=== PATIENT | female | born 1985 | race Caucasian/White ===

== ENCOUNTER 2018-04-04 07:46 | Emergency (ER) | payer OTHER, SELFPAY ==
[2018-04-04 07:53] VITALS: BP 119/64; PULSE 101; RESP 16; TEMP 36.4; O2SAT 99; BMI 19.0
[2018-04-04 07:54] VITALS: BP 119/64; PULSE 101; RESP 16; TEMP 36.4; O2SAT 99
[2018-04-04 08:26] LABS: Add Manual Diff / Slide Review NO; Basophils Absolute Auto 0 /uL (0-100); Basophils Percent Auto 0.3 % (0-2); Eosinophils Absolute Auto 100 /uL (0-450); Eosinophils Percent Auto 1.2 % (2-4); Hematocrit 42.7 % (36-46); Hemoglobin 14.3 g/dL (12.0-16.0); Lymphocytes Absolute Auto 1800 /uL (1100-4500); Lymphocytes Percent Auto 21.3 % (25-40); Mean Corpuscular HGB Conc 33.5 % (30-36); Mean Corpuscular Hemoglobin 29.9 PG (26-34); Mean Corpuscular Volume 89.3 fL (80-100); Monocytes Absolute Auto 700 /uL (0-900); Monocytes Percent Auto 8.2 % (3-14); Neutrophils Absolute Auto 5900 /uL (1500-7000); Platelet Count 277 X10^3/uL (150-400); Red Blood Cell Count 4.78 X10^6/uL (4.0-5.2); Red Cell Distribution Width 12.5 % (11.6-14.8); White Blood Cell Count 8.5 X10^3/uL (4.5-11.0)
[2018-04-04] MEDS: SODIUM CHLORIDE 0.9% 1,000 ML 1000 ML IV (08:26)
[2018-04-04] MEDS: ONDANSETRON 4 MG/2 ML INJ IV (08:26)
--- NOTE | 2018-04-04 08:30 | ED.NAVMDI ---
HPI - Nausea/Vomiting/Diarrhea General Chief complaint: Nausea/Vomiting/Diarrhea Stated complaint: states upper abd pain, diarrhea x10 days Time Seen by Provider: 04/04/18 08:16 Source: patient Mode of arrival: ambulatory Limitations: no limitations History of Present Illness HPI Narrative: This is a 32-year-old female that comes to the emergency department with complaint of epigastric pain. Patient states it started about 11 days ago. She states that she thought it was because she was eating some food she does not normally eat. But it did not really seem to resolve. She has been having diarrhea intermittently since then. She states most time she eats she will later have loose watery stool. Sometimes up to 5 times a day. Patient has had some slight nausea occasionally, no vomiting. Food seems to exacerbate her symptoms as well as her abdominal pain. Patient denies any radiation to the back. She states she does have some chronic back discomfort but this is her norm. She has not had any black or bloody stool. She has not had any dysuria, urgency or frequency. She had somewhat similar pain when she was but otherwise has not had similar symptoms in the past. She denies any fevers or chills. She states otherwise healthy. No prior abdominal surgeries. Related Data Previous Rx's Medication Instructions Recorded esomeprazole magnesium [Nexium] 40 mg PO DAILY #30 cap 04/04/18 Allergies Allergy/AdvReac Type Severity Reaction Status Date / Time Sulfa (Sulfonamide Allergy Severe Anaphylaxis Verified 04/04/18 08:25 Antibiotics) Review of Systems Review of Systems ROS Unobtainable: All systems reviewed & are unremarkable except as noted in HPI and below Constitutional Denies chills and Denies fever(s) Gastrointestinal Gastrointestinal: Reports abdominal pain (Epigastric), Denies melena, Denies hematochezia, Denies change in bowel habits, Reports change in stool character, Denies constipation, Reports diarrhea, Reports nausea and Denies vomiting Genitourinary Denies hematuria, Denies dysuria, Denies flank pain, Denies urinary incontinence, Denies urinary hesitancy and Denies urinary urgency Musculoskeletal Reports back pain (Mild chronic back pain) PFSH Social History Smoking Status: Never smoker Social History Smoking Status: Never smoker Exam Narrative Exam Narrative: GENERAL: Alert and oriented x three, thin, well-appearing healthy female in no acute distress. HEENT: Head normocephalic, atraumatic, EOMI, pupils reactive, face symmetric, moist mucous membranes NECK: Supple, full range of motion CARDIOVASCULAR: Regular rate and rhythm without murmurs, rubs or gallops. RESPIRATORY: Breath sounds equal bilaterally, no wheezes rales or rhonchi. ABDOMEN: Soft, very mild epigastric tenderness. Normoactive bowel sounds all 4 quadrants. No guarding or rebound, rigidity, no mass : No CVA tenderness EXTREMITIES: Normal range of motion, no clubbing or edema. Neurovascularly intact NEUROLOGICAL: Cranial nerves II through XII grossly intact. Moving all extremities SKIN: Warm, dry, no petechiae, no rashes or lesions. Initial Vital Signs Initial Vital Signs: Vital Signs Temperature 97.6 F 04/04/18 07:53 Pulse Rate 101 H 04/04/18 07:53 Respiratory Rate 16 04/04/18 07:53 Blood Pressure 119/64 04/04/18 07:53 Pulse Oximetry 99 04/04/18 07:53 Course Orders Ordered: ED Orders 04/04/18 08:10 Complete Blood Count AUTO DIFF Stat Comprehensive Metabolic Panel Stat Lipase Stat Partial Thromboplastin Time Stat Prothrombin Time INR Stat 04/04/18 08:29 US abdomen complete Stat 04/04/18 08:30 Urine Culture Stat Urine Microscopic Stat Discontinued Medications Sodium Chloride (Normal Saline 0.9%) 1,000 mls @ 1,000 mls/hr IV BOLUS ONE Stop: 04/04/18 08:56 Last Infusion: 04/04/18 09:20 Dose: 0 mls/hr Admin: 04/04/18 08:26 Dose: 1,000 mls/hr Ondansetron HCl (Zofran) 4 mg IV NOW ONE Stop: 04/04/18 07:58 Last Admin: 04/04/18 08:26 Dose: 4 mg Pantoprazole Sodium (Protonix) 40 mg IV NOW ONE Stop: 04/04/18 08:30 Last Admin: 04/04/18 08:36 Dose: 40 mg Vital Signs - 8 hr 04/04/18 07:53 04/04/18 07:54 04/04/18 09:47 Temperature 97.6 F 97.6 F Pulse Rate 101 H 101 H 69 Respiratory Rate 16 16 20 Blood Pressure 119/64 99/51 L Blood Pressure [Left Arm] 119/64 Pulse Oximetry 99 99 98 MDM - Nausea/Vomiting/Diarrhea Lab Data Attestation: I reviewed the patient's lab results. Result diagrams: 04/04/18 08:10 04/04/18 08:10 Lab Results 04/04/18 04/04/18 04/04/18 Range/Units 08:10 08:10 08:10 WBC 8.5 (4.5-11.0) X10^3/uL RBC 4.78 (4.0-5.2) X10^6/uL Hgb 14.3 (12.0-16.0) g/dL Hct 42.7 (36-46) % MCV 89.3 (80-100) fL MCH 29.9 (26-34) PG MCHC 33.5 (30-36) % RDW 12.5 (11.6-14.8) % Plt Count 277 (150-400) X10^3/uL Neut % (Auto) 69.0 (50-75) % Lymph % (Auto) 21.3 L (25-40) % [place] % (Auto) 8.2 (3-14) % Eos % (Auto) 1.2 L (2-4) % Baso % (Auto) 0.3 (0-2) % Neut # (Auto) 5900 (0511-6148) /uL Lymph # (Auto) 1800 (2321-8498) /uL [place] # (Auto) 700 (0-900) /uL Eos # (Auto) 100 (0-450) /uL Baso # (Auto) 0 (0-100) /uL PT 11.3 (10.1-12.7) SECONDS INR 1.0 (0.9-1.3) APTT 30 (26.4-36.2) SECONDS Sodium 139 (137-145) mmol/L Potassium 3.4 (3.4-5.1) mmol/L Chloride 105 (98-107) mmol/L Carbon Dioxide 23 (22-32) mmol/L BUN 12 (7-17) mg/dL Creatinine 0.60 (0.52-1.04) mg/dL Estimated GFR > 60.0 (>60) mL/min BUN/Creatinine Ratio 20.0 (6-22) Glucose 90 (70-100) mg/dL Calcium 9.0 (8.4-10.2) mg/dL Total Bilirubin 0.4 (0.2-1.3) mg/dL AST 29 (14-36) IU/L ALT 34 (9-52) IU/L Alkaline Phosphatase 40 (38-126) U/L Total Protein 7.3 (6.3-8.2) g/dL Albumin 4.4 (3.5-5.0) g/dL Globulin 2.9 (1.7-4.1) g/dL Albumin/Globulin Ratio 1.5 (1.0-2.8) Lipase 72 (23-300) U/L Urine RBC (0-5/HPF) Urine WBC (0-5/HPF) Ur Squamous Epith Cells Urine Bacteria (None) Urine Mucus (Negative) Ur Culture Indicated? 04/04/18 Range/Units 08:30 WBC (4.5-11.0) X10^3/uL RBC (4.0-5.2) X10^6/uL Hgb (12.0-16.0) g/dL Hct (36-46) % MCV (80-100) fL MCH (26-34) PG MCHC (30-36) % RDW (11.6-14.8) % Plt Count (150-400) X10^3/uL Neut % (Auto) (50-75) % Lymph % (Auto) (25-40) % [place] % (Auto) (3-14) % Eos % (Auto) (2-4) % Baso % (Auto) (0-2) % Neut # (Auto) (6279-0388) /uL Lymph # (Auto) (6027-1955) /uL [place] # (Auto) (0-900) /uL Eos # (Auto) (0-450) /uL Baso # (Auto) (0-100) /uL PT (10.1-12.7) SECONDS INR (0.9-1.3) APTT (26.4-36.2) SECONDS Sodium (137-145) mmol/L Potassium (3.4-5.1) mmol/L Chloride (98-107) mmol/L Carbon Dioxide (22-32) mmol/L BUN (7-17) mg/dL Creatinine (0.52-1.04) mg/dL Estimated GFR (>60) mL/min BUN/Creatinine Ratio (6-22) Glucose (70-100) mg/dL Calcium (8.4-10.2) mg/dL Total Bilirubin (0.2-1.3) mg/dL AST (14-36) IU/L ALT (9-52) IU/L Alkaline Phosphatase (38-126) U/L Total Protein (6.3-8.2) g/dL Albumin (3.5-5.0) g/dL Globulin (1.7-4.1) g/dL Albumin/Globulin Ratio (1.0-2.8) Lipase (23-300) U/L Urine RBC None seen (0-5/HPF) Urine WBC 1-5/hpf (0-5/HPF) Ur Squamous Epith Cells 1-5 /hpf Urine Bacteria Few (2-10) H (None) Urine Mucus 1+ H (Negative) Ur Culture Indicated? Specimen cultured Point of Care Testing Test Results Negative Urine Dip Bedside Urine Glucose Negative Bedside Urine Bilirubin + 1 Bedside Urine Ketone +/- 5 Urine Specific [place] 1.015 Bedside Urine Occult Blood +/- Bedside Urine pH 6.0 Bedside Urine Protein - Negative Bedside Urine Urobilinogen - Negative Bedside Urine Nitrite - Negative Bedside Urine Leukocytes ++ 125 Esterase Imaging Data US - abdomen: Radiologist's impression: Chart Viewer Diagnostics DATE TYPE STATUS AUTHOR Hx 04/04/18 08:29 Cristin Persaud Danielle J 32, F0 1985 DEP ER, ED - Main ED: R10 162.56cm 50.349kg BMI: 19.1kg/m? Nausea/Vomiting/Diarrhea Search Chart Anaphylaxis ONSET Today 09:47 Anjana Johnson 32 F [address] [address] Ultrasound Report Signed Patient: Anjana Johnson JMR#: [id number] : 1985Acct:[id number] Age/Sex: 32 / FDate of Service: 04/04/18 Loc: ED Accession Number: [id number] Procedure: US abdomen complete Ordering Provider: Lety Felix D.O. PROCEDURE: US ABDOMEN COMPLETE INDICATIONS: EPIGASTRIC PAIN TECHNIQUE: Real-time scanning was performed of the abdominal and retroperitoneal organs, with image documentation. COMPARISON: None. FINDINGS: Liver: Liver is normal in size and homogeneous in echotexture. Gallbladder: Normal without stones or sludge. Normal wall thickness at 1.4 mm. No sonographic Nelson's sign or pericholecystic fluid. Biliary ducts: Intrahepatic bile ducts are non-dilated. Extrahepatic bile duct caliber measures 5 mm. Normal is 6-7 mm or less in diameter, or 10 mm or less post-cholecystectomy. Pancreas: Visualized portions of the pancreas are sonographically normal. Spleen: Spleen is normal in size and homogeneous in echotexture. Kidneys: Kidneys are normal in size and echotexture. Right kidney measures 11.7 cm long; left kidney measures 11.7 cm long. No hydronephrosis or nephrolithiasis. No solid masses. Aorta: Visualized aorta is normal in caliber at less than 3 cm. Iliacs: Proximal common iliac arteries are normal in caliber at less than 2.5 cm. IVC: Intrahepatic inferior vena cava is patent. Miscellaneous: No free abdominal fluid. IMPRESSION: Normal abdominal ultrasound. Dictated by: Cristin Persaud M.D. on 04/04/2018 at 11:42 Approved by: Cristin Persaud M.D. on 04/04/2018 at 11:44 MDM Narrative Medical decision making narrative: I suspect patient may have ulcer. She urine has leukocyte esterase but also 1-5 epithelials, sent for urine culture after conversation with patient. Will call if positive to start antibiotics. Unlikely to be cause of her epigastric pain. Patient's lab work does not show any major changes. Ultrasound does show any major changes. Discussed with patient she is comfortable starting dose medication to see if this improves her symptoms. We discussed to probably take a week before she really noticed much change. Also discussed to make sure she is keeping hydrated. Patient and I did discuss signs and symptoms to watch for reasons to return. Do want her to follow up with primary care. Discharge Plan Departure Patient Disposition: Home Clinical Impression: Epigastric abdominal pain Discharge Date/Time: 04/04/18 09:51 Interventions: ED Discharge Assessment Last Done: 04/04/18 09:47 Instructions: DI for Epigastric Pain Activity Restrictions/Additional Instructions: Follow up with primary care in the next 5-7 days for recheck. Call for an appointment. Your urine was sent for culture, if positive for infection you should expect a phone call to start you on antibiotics. Take nexium once daily until you see your physician. Return to ER for fevers greater than 100.4F, rapidly worsening pain, persistent vomiting, black or bloody stools, new chest pain, shortness of breath or other new or concerning symptoms. Prescriptions: New esomeprazole magnesium [Nexium] 40 mg capsule,delayed release(DR/EC) 40 mg PO DAILY Qty: 30 RF: 0
[2018-04-04 08:32] LABS: Prothrombin Time 11.3 SECONDS (10.1-12.7)
--- NOTE | 2018-04-04 08:33 | ED_ITS ---
HPI - Nausea/Vomiting/Diarrhea General Chief complaint: Nausea/Vomiting/Diarrhea Stated complaint: states upper abd pain, diarrhea x10 days Time Seen by Provider: 04/04/18 08:16 Source: patient Mode of arrival: ambulatory Limitations: no limitations History of Present Illness HPI Narrative: This is a 32-year-old female that comes to the emergency department with complaint of epigastric pain. Patient states it started about 11 days ago. She states that she thought it was because she was eating some food she does not normally eat. But it did not really seem to resolve. She has been having diarrhea intermittently since then. She states most time she eats she will later have loose watery stool. Sometimes up to 5 times a day. Patient has had some slight nausea occasionally, no vomiting. Food seems to exacerbate her symptoms as well as her abdominal pain. Patient denies any radiation to the back. She states she does have some chronic back discomfort but this is her norm. She has not had any black or bloody stool. She has not had any dysuria, urgency or frequency. She had somewhat similar pain when she was but otherwise has not had similar symptoms in the past. She denies any fevers or chills. She states otherwise healthy. No prior abdominal surgeries. Related Data Previous Rx's Medication Instructions Recorded esomeprazole magnesium [Nexium] 40 mg PO DAILY #30 cap 04/04/18 Allergies Allergy/AdvReac Type Severity Reaction Status Date / Time Sulfa (Sulfonamide Allergy Severe Anaphylaxis Verified 04/04/18 08:25 Antibiotics) Review of Systems Review of Systems ROS Unobtainable: All systems reviewed & are unremarkable except as noted in HPI and below Constitutional Denies chills and Denies fever(s) Gastrointestinal Gastrointestinal: Reports abdominal pain (Epigastric), Denies melena, Denies hematochezia, Denies change in bowel habits, Reports change in stool character, Denies constipation, Reports diarrhea, Reports nausea and Denies vomiting Genitourinary Denies hematuria, Denies dysuria, Denies flank pain, Denies urinary incontinence, Denies urinary hesitancy and Denies urinary urgency Musculoskeletal Reports back pain (Mild chronic back pain) PFSH Social History Smoking Status: Never smoker Social History Smoking Status: Never smoker Exam Narrative Exam Narrative: GENERAL: Alert and oriented x three, thin, well-appearing healthy female in no acute distress. HEENT: Head normocephalic, atraumatic, EOMI, pupils reactive, face symmetric, moist mucous membranes NECK: Supple, full range of motion CARDIOVASCULAR: Regular rate and rhythm without murmurs, rubs or gallops. RESPIRATORY: Breath sounds equal bilaterally, no wheezes rales or rhonchi. ABDOMEN: Soft, very mild epigastric tenderness. Normoactive bowel sounds all 4 quadrants. No guarding or rebound, rigidity, no mass : No CVA tenderness EXTREMITIES: Normal range of motion, no clubbing or edema. Neurovascularly intact NEUROLOGICAL: Cranial nerves II through XII grossly intact. Moving all extremities SKIN: Warm, dry, no petechiae, no rashes or lesions. Initial Vital Signs Initial Vital Signs: Vital Signs Temperature 97.6 F 04/04/18 07:53 Pulse Rate 101 H 04/04/18 07:53 Respiratory Rate 16 04/04/18 07:53 Blood Pressure 119/64 04/04/18 07:53 Pulse Oximetry 99 04/04/18 07:53 Course Orders Ordered: ED Orders 04/04/18 08:10 Complete Blood Count AUTO DIFF Stat Comprehensive Metabolic Panel Stat Lipase Stat Partial Thromboplastin Time Stat Prothrombin Time INR Stat 04/04/18 08:29 US abdomen complete Stat 04/04/18 08:30 Urine Culture Stat Urine Microscopic Stat Discontinued Medications Sodium Chloride (Normal Saline 0.9%) 1,000 mls @ 1,000 mls/hr IV BOLUS ONE Stop: 04/04/18 08:56 Last Infusion: 04/04/18 09:20 Dose: 0 mls/hr Admin: 04/04/18 08:26 Dose: 1,000 mls/hr Ondansetron HCl (Zofran) 4 mg IV NOW ONE Stop: 04/04/18 07:58 Last Admin: 04/04/18 08:26 Dose: 4 mg Pantoprazole Sodium (Protonix) 40 mg IV NOW ONE Stop: 04/04/18 08:30 Last Admin: 04/04/18 08:36 Dose: 40 mg Vital Signs - 8 hr 04/04/18 07:53 04/04/18 07:54 04/04/18 09:47 Temperature 97.6 F 97.6 F Pulse Rate 101 H 101 H 69 Respiratory Rate 16 16 20 Blood Pressure 119/64 99/51 L Blood Pressure [Left Arm] 119/64 Pulse Oximetry 99 99 98 MDM - Nausea/Vomiting/Diarrhea Lab Data Attestation: I reviewed the patient's lab results. Result diagrams: 04/04/18 08:10 04/04/18 08:10 Lab Results 04/04/18 04/04/18 04/04/18 Range/Units 08:10 08:10 08:10 WBC 8.5 (4.5-11.0) X10^3/uL RBC 4.78 (4.0-5.2) X10^6/uL Hgb 14.3 (12.0-16.0) g/dL Hct 42.7 (36-46) % MCV 89.3 (80-100) fL MCH 29.9 (26-34) PG MCHC 33.5 (30-36) % RDW 12.5 (11.6-14.8) % Plt Count 277 (150-400) X10^3/uL Neut % (Auto) 69.0 (50-75) % Lymph % (Auto) 21.3 L (25-40) % [place] % (Auto) 8.2 (3-14) % Eos % (Auto) 1.2 L (2-4) % Baso % (Auto) 0.3 (0-2) % Neut # (Auto) 5900 (9640-0924) /uL Lymph # (Auto) 1800 (8944-2110) /uL [place] # (Auto) 700 (0-900) /uL Eos # (Auto) 100 (0-450) /uL Baso # (Auto) 0 (0-100) /uL PT 11.3 (10.1-12.7) SECONDS INR 1.0 (0.9-1.3) APTT 30 (26.4-36.2) SECONDS Sodium 139 (137-145) mmol/L Potassium 3.4 (3.4-5.1) mmol/L Chloride 105 (98-107) mmol/L Carbon Dioxide 23 (22-32) mmol/L BUN 12 (7-17) mg/dL Creatinine 0.60 (0.52-1.04) mg/dL Estimated GFR > 60.0 (>60) mL/min BUN/Creatinine Ratio 20.0 (6-22) Glucose 90 (70-100) mg/dL Calcium 9.0 (8.4-10.2) mg/dL Total Bilirubin 0.4 (0.2-1.3) mg/dL AST 29 (14-36) IU/L ALT 34 (9-52) IU/L Alkaline Phosphatase 40 (38-126) U/L Total Protein 7.3 (6.3-8.2) g/dL Albumin 4.4 (3.5-5.0) g/dL Globulin 2.9 (1.7-4.1) g/dL Albumin/Globulin Ratio 1.5 (1.0-2.8) Lipase 72 (23-300) U/L Urine RBC (0-5/HPF) Urine WBC (0-5/HPF) Ur Squamous Epith Cells Urine Bacteria (None) Urine Mucus (Negative) Ur Culture Indicated? 04/04/18 Range/Units 08:30 WBC (4.5-11.0) X10^3/uL RBC (4.0-5.2) X10^6/uL Hgb (12.0-16.0) g/dL Hct (36-46) % MCV (80-100) fL MCH (26-34) PG MCHC (30-36) % RDW (11.6-14.8) % Plt Count (150-400) X10^3/uL Neut % (Auto) (50-75) % Lymph % (Auto) (25-40) % [place] % (Auto) (3-14) % Eos % (Auto) (2-4) % Baso % (Auto) (0-2) % Neut # (Auto) (3604-5974) /uL Lymph # (Auto) (5941-3964) /uL [place] # (Auto) (0-900) /uL Eos # (Auto) (0-450) /uL Baso # (Auto) (0-100) /uL PT (10.1-12.7) SECONDS INR (0.9-1.3) APTT (26.4-36.2) SECONDS Sodium (137-145) mmol/L Potassium (3.4-5.1) mmol/L Chloride (98-107) mmol/L Carbon Dioxide (22-32) mmol/L BUN (7-17) mg/dL Creatinine (0.52-1.04) mg/dL Estimated GFR (>60) mL/min BUN/Creatinine Ratio (6-22) Glucose (70-100) mg/dL Calcium (8.4-10.2) mg/dL Total Bilirubin (0.2-1.3) mg/dL AST (14-36) IU/L ALT (9-52) IU/L Alkaline Phosphatase (38-126) U/L Total Protein (6.3-8.2) g/dL Albumin (3.5-5.0) g/dL Globulin (1.7-4.1) g/dL Albumin/Globulin Ratio (1.0-2.8) Lipase (23-300) U/L Urine RBC None seen (0-5/HPF) Urine WBC 1-5/hpf (0-5/HPF) Ur Squamous Epith Cells 1-5 /hpf Urine Bacteria Few (2-10) H (None) Urine Mucus 1+ H (Negative) Ur Culture Indicated? Specimen cultured Point of Care Testing Test Results Negative Urine Dip Bedside Urine Glucose Negative Bedside Urine Bilirubin + 1 Bedside Urine Ketone +/- 5 Urine Specific [place] 1.015 Bedside Urine Occult Blood +/- Bedside Urine pH 6.0 Bedside Urine Protein - Negative Bedside Urine Urobilinogen - Negative Bedside Urine Nitrite - Negative Bedside Urine Leukocytes ++ 125 Esterase Imaging Data US - abdomen: Radiologist's impression: Chart Viewer Diagnostics DATE TYPE STATUS AUTHOR Hx 04/04/18 08:29 Cristin Persaud Danielle J 32, F0 1985 DEP ER, ED - Main ED: R10 162.56cm 50.349kg BMI: 19.1kg/m? Nausea/Vomiting/Diarrhea Search Chart Anaphylaxis ONSET Today 09:47 Anjana Johnson 32 F [address] [address] Ultrasound Report Signed Patient: Anjana Johnson JMR#: [id number] : 1985Acct:[id number] Age/Sex: 32 / FDate of Service: 04/04/18 Loc: ED Accession Number: [id number] Procedure: US abdomen complete Ordering Provider: Lety Felix D.O. PROCEDURE: US ABDOMEN COMPLETE INDICATIONS: EPIGASTRIC PAIN TECHNIQUE: Real-time scanning was performed of the abdominal and retroperitoneal organs, with image documentation. COMPARISON: None. FINDINGS: Liver: Liver is normal in size and homogeneous in echotexture. Gallbladder: Normal without stones or sludge. Normal wall thickness at 1.4 mm. No sonographic Nelson's sign or pericholecystic fluid. Biliary ducts: Intrahepatic bile ducts are non-dilated. Extrahepatic bile duct caliber measures 5 mm. Normal is 6-7 mm or less in diameter, or 10 mm or less post-cholecystectomy. Pancreas: Visualized portions of the pancreas are sonographically normal. Spleen: Spleen is normal in size and homogeneous in echotexture. Kidneys: Kidneys are normal in size and echotexture. Right kidney measures 11.7 cm long; left kidney measures 11.7 cm long. No hydronephrosis or nephrolithiasis. No solid masses. Aorta: Visualized aorta is normal in caliber at less than 3 cm. Iliacs: Proximal common iliac arteries are normal in caliber at less than 2.5 cm. IVC: Intrahepatic inferior vena cava is patent. Miscellaneous: No free abdominal fluid. IMPRESSION: Normal abdominal ultrasound. Dictated by: Cristin Persaud M.D. on 04/04/2018 at 11:42 Approved by: Cristin Persaud M.D. on 04/04/2018 at 11:44 MDM Narrative Medical decision making narrative: I suspect patient may have ulcer. She urine has leukocyte esterase but also 1-5 epithelials, sent for urine culture after conversation with patient. Will call if positive to start antibiotics. Unlikely to be cause of her epigastric pain. Patient's lab work does not show any major changes. Ultrasound does show any major changes. Discussed with patient she is comfortable starting dose medication to see if this improves her symptoms. We discussed to probably take a week before she really noticed much change. Also discussed to make sure she is keeping hydrated. Patient and I did discuss signs and symptoms to watch for reasons to return. Do want her to fol low up with primary care. Discharge Plan Departure Patient Disposition: Home Clinical Impression: Epigastric abdominal pain Discharge Date/Time: 04/04/18 09:51 Interventions: ED Discharge Assessment Last Done: 04/04/18 09:47 Instructions: DI for Epigastric Pain Activity Restrictions/Additional Instructions: Follow up with primary care in the next 5-7 days for recheck. Call for an appointment. Your urine was sent for culture, if positive for infection you should expect a phone call to start you on antibiotics. Take nexium once daily until you see your physician. Return to ER for fevers greater than 100.4F, rapidly worsening pain, persistent vomiting, black or bloody stools, new chest pain, shortness of breath or other new or concerning symptoms. Prescriptions: New esomeprazole magnesium [Nexium] 40 mg capsule,delayed release(DR/EC) 40 mg PO DAILY Qty: 30 RF: 0
[2018-04-04 08:35] LABS: Alanine Aminotransferase 34 IU/L (9-52); Albumin 4.4 g/dL (3.5-5.0); Albumin Globulin Ratio 1.5 (1.0-2.8); Alkaline Phosphatase 40 U/L (38-126); Aspartate Aminotransferase 29 IU/L (14-36); Bilirubin Total 0.4 mg/dL (0.2-1.3); Blood Urea Nitrogen 12 mg/dL (7-17); Carbon Dioxide 23 mmol/L (22-32); Chloride 105 mmol/L (98-107); Estimated Glomerular Filt Rate > 60.0 mL/min (>60); Globulin 2.9 g/dL (1.7-4.1); Glucose 90 mg/dL (70-100); HEMOLYSIS < 15 (0-50); Lipase 72 U/L (23-300); PTT Partial Thromboplastin Tim 30 SECONDS (26.4-36.2); Potassium 3.4 mmol/L (3.4-5.1); Sodium 139 mmol/L (137-145); Total Protein 7.3 g/dL (6.3-8.2)
[2018-04-04 08:36] LABS: RBC Urine None Seen (0-5/HPF)
[2018-04-04] MEDS: PANTOPRAZOLE 40 MG VIAL IV (08:36)
[2018-04-04 08:45] LABS: WBC Urine 1-5/HPF (0-5/HPF)
[2018-04-04 08:46] LABS: Bacteria Urine Few (2-10); Culture Indicated Urine Specimen Cultured; Mucus Urine 1+ (Negative); Squamous Epithelial Cell Urine 1-5 /HPF
[2018-04-04 09:47] VITALS: BP 99/51; PULSE 69; RESP 20; O2SAT 98
== END 2018-04-04 09:51 | disposition home or self-care (01) ==
PROVIDERS: Emergency Provider Emergency Medicine
DX: R10.13 Epigastric pain (principal)
CPT/HCPCS: 36591; 76700; 80053; 81003; 81015; 81025; 83690; 85025; 85610; 85730; 87086; 96361; 96374; 96375; 99283; 99284; C9113; J2405

== ENCOUNTER 2018-06-03 10:02 | Day surgery (SDC) | payer OTHER, SELFPAY ==
--- NOTE | 2018-06-03 | PATH_ITS ---
[facility] Accession Number: [id number] . 01 Material submitted: . PART A: gastrointestinal site - GASTRIC BIOPSY PART B: small bowel - SMALL BOWEL BIOPSY . 01 Clinical history: . A: GASTRIC BIOPSY R/O H. PYLORI (EGD) B: SMALL BOWEL, R/O CELIAC DISEASE (EGD) . 02 Diagnosis: A. Stomach, Biopsy: Antral and body-type mucosa with mild chronic gastritis. Negative for Helicobacter by immunohistochemistry. Negative for intestinal metaplasia. Negative for dysplasia and malignancy. . B. Small Bowel, Biopsy: Mild active enteritis with minimal blunting of the villous architecture, please see comment. Negative for granulomas, dysplasia and malignancy. [facility]/06/05/2018 . 02 Comment: B. The duodenal mucosa shows patchy mild neutrophilic activity and minimal villous blunting. Occasional lymphocytes are present in the epithelium; however, they do not rise to the threshold of 40 lymphocytes per 100 enterocytes. Overall the findings are nonspecific. A diagnosis of celiac disease requires characteristic histomorphology while on a gluten-containing diet and resolution of symptoms on a gluten-free diet. Correlation with serology is also recommended. . 02 Electronically signed: . Chen De Luna MD, Pathologist NPI- [id number] . 01 Gross description: . Part A: GASTRIC BIOPSY: Received in formalin are 4 fragment(s) of zaragoza, soft tissue measuring 0.1 x 0.1 x 0.1 cm to 0.3 x 0.2 x 0.2 cm which is entirely submitted and submitted entirely in 1 cassette(s) Part B: SMALL BOWEL BIOPSY: Received in formalin are 3 fragment(s) of zaragoza, soft tissue measuring 0.1 x 0.1 x 0.1 cm to 0.3 x 0.2 x 0.2 cm which is entirely submitted and submitted entirely in 1 cassette(s) /DMC /DMC . 02 Microscopic: . A. An immunohistochemical stain was performed to evaluate for Helicobacter organisms and is negative. The control stain showed appropriate reactivity. . B. Additional levels were examined. . * This test was developed and its performance characteristics determined by [facility]. It has not been cleared or approved by the U.S. Food and Drug Administration. The FDA has determined that such clearance or approval is not necessary. This test is used for clinical purposes. It should not be regarded as investigational or for research. . 02 Pathologist provided ICD-10: R10.9 . 02 CPT . 076986, 343868, Q86840 Performed at: [facility] [address] [id number] MD Jacob Franco MD Phone: [phone] Performed at: 02 [facility] [address] [address] [place], [place] [id number] MD Chen De Luna MD Phone: [phone]
[2018-06-03 10:29] VITALS: BP 104/63; PULSE 83; RESP 16; TEMP 36.4; O2SAT 100; BMI 18.8
[2018-06-03] MEDS: SODIUM CHLORIDE 0.9% 1,000 ML 70 ML IV (10:42)
--- NOTE | 2018-06-03 11:37 | PM.HP.1 ---
History of Present Illness Date Patient Seen: 06/03/18 Chief complaint: [id number] Narrative: 33-year-old female with dyspeptic symptoms and epigastric pain not responsive to medication also with associated weight loss who was seen in our office on 05/13/2018. Please refer to that note for further details. Patient History Family & Social History Social History: household members spouse Tobacco & Substance use: Smoking Status Never smoker alcohol intake frequency a few times a week Substance Use Type marijuana Meds Home Medications Medication Instructions Recorded Confirmed Type esomeprazole magnesium [Nexium] 40 mg PO DAILY #30 cap 04/04/18 Rx Allergies Allergy/AdvReac Type Severity Reaction Status Date / Time Sulfa (Sulfonamide Allergy Severe Anaphylaxis Verified 06/03/18 10:43 Antibiotics) Exam Vital Signs (past 8 hours): - 06/03/18 10:29 Temperature 97.5 F L Pulse Rate 83 Respiratory Rate 16 Blood Pressure 104/63 Pulse Oximetry 100 Oxygen Delivery Method Room Air Narrative Exam Narrative: General: Patient is well developed, not in apparent distress Cardiovascular: Regular rate and rhythm, no murmurs, rubs, or gallops; no evidence of edema; no palpable abdominal aortic aneurysm Gastrointestinal: Normoactive bowel sounds, soft, nontender, nondistended, no rebound tenderness, no hepatosplenomegaly, no evidence of hernia Assessment & Plan Assessment & Plan narrative: 33-year-old female with dyspepsia not responsive medications and history of weight loss who is here for further evaluation. Plan is for EGD with gastric and small-bowel biopsies Regarding the procedure(s), the risks and potential complications, benefits, and alternatives (including not doing the procedure) were discussed with the patient. The risks include but are not limited to bleeding, splenic injury, infection, perforation which may require surgical intervention, missed lesions, and adverse reactions to sedative medicines. After a question and answer period, the patient agreed to proceed with the procedure(s) and gives informed consent.
--- NOTE | 2018-06-03 11:39 | PM.OP.ENDO ---
Operative Date/Time/Diagnoses Date of procedure: 06/03/18 Procedure Notes Procedure in detail: Surgeon: Marcelino Grant MD Procedure: Esophagogastroduodenoscopy with biopsies Preoperative diagnosis: Dyspepsia and epigastric pain unresponsive to medications, weight loss Postoperative diagnosis: Normal EGD Medications: Conscious sedation using 4 mg IV of Midazolam and 150 mcg IV of Fentanyl; Cetacaine spray Preanesthesia Assessment An H and P was performed/updated and the Px?s ASA class is 1. The procedure was discussed in detail with the patient. The potential risks and complications including infection, bleeding, missed lesions, perforation, need for surgery in case of perforation, prolonged hospital stay, and were explained. A brief question and answer period was allotted and once all questions were answered, informed consent was obtained. The patient was brought back to the procedure room and placed on standard monitoring. The patient?s vital signs were monitored continuously throughout the entire procedure. Prior to starting, a timeout was performed to confirm the patient?s identity, allergies, medications, and procedure. Procedure in detail The patient was placed in left lateral decubitus position and a bite block was inserted. The tip of the upper endoscope was placed into the mouth and advanced without difficulty under direct visualization into the esophagus. Esophagus: The visualized esophagus was normal Stomach: The visualized stomach was normal. Biopsies were obtained from the body and antrum to rule out H pylori Duodenum: The visualized duodenum up to the 2nd portion was normal. Biopsies were taken to rule out celiac disease The patient tolerated the procedure well and will be brought back to the recovery area to be discharged once criteria are met. The total physician intraservice time was 11 minutes. Complications There were no complications and estimated blood loss was minimal. Recommendations: Resume previous diet Continue outPx medications Follow up pathology results Office follow up with Dr. De Anda as previously scheduled An emergency contact number was given to the patient for any complications related to the procedure
[2018-06-03] MEDS: LIDOCAINE 4% SOLN 50 ML 20 ML TOP (11:40)
[2018-06-03] MEDS: TETRACAINE/BENZOCAINE/BUTAMBEN (CETACAINE) BOTTLE 1 SPRAY TOP (11:41)
[2018-06-03] MEDS: fentaNYL 250 MCG/5 ML INJ IV (11:43)
[2018-06-03] MEDS: MIDAZOLAM 5 MG/5 ML VIAL IV (11:43)
--- NOTE | 2018-06-03 11:56 | PM.DS.1 ---
History of Present Illness Chief complaint: [id number] Narrative: 33-year-old female with dyspeptic symptoms and epigastric pain not responsive to medication also with associated weight loss who was seen in our office on 05/13/2018. Please refer to that note for further details. Discharge Providers Discharge Date: 06/03/18 Discharge provider: Marcelino Grant MD Exam Vital Signs (past 8 hours): - 06/03/18 10:29 Temperature 97.5 F L Pulse Rate 83 Respiratory Rate 16 Blood Pressure 104/63 Pulse Oximetry 100 Oxygen Delivery Method Room Air Narrative Exam Narrative: General: Patient is well developed, not in apparent distress Cardiovascular: Regular rate and rhythm, no murmurs, rubs, or gallops; no evidence of edema; no palpable abdominal aortic aneurysm Gastrointestinal: Normoactive bowel sounds, soft, nontender, nondistended, no rebound tenderness, no hepatosplenomegaly, no evidence of hernia Discharge Plan Discharge Plan Patient Disposition: Home Discharge Med Rec/Prescriptions Prescriptions: Continued esomeprazole magnesium [Nexium] 40 mg capsule,delayed release(DR/EC) 40 mg PO DAILY Qty: 30 RF: 0 Discharge Orders: Discharge (Order); Ordered 06/03/18 Ordered By: Marcelino Grant Provider Discharge Instructions Diet: Diet as Tolerated Visit Report/Discharge Packet Stand Alone Forms: EGD Result: Medical Group Discharge Data Attending Provider: Marcelino Grant
[2018-06-03 11:58] VITALS: BP 94/42; PULSE 74; RESP 16; TEMP 36.8; O2SAT 99
[2018-06-03 12:03] VITALS: BP 88/42; PULSE 77; RESP 16; O2SAT 100
[2018-06-03 12:07] VITALS: BP 90/43; PULSE 77; RESP 16; O2SAT 100
[2018-06-03 12:11] VITALS: BP 99/49; PULSE 16; RESP 18; TEMP 37.6; O2SAT 100
[2018-06-03 12:17] VITALS: BP 96/58; PULSE 80; RESP 16; O2SAT 97
== END 2018-06-03 12:31 | disposition home or self-care (01) ==
PROVIDERS: Visit Provider Internal Medicine Gastroenterology
PROC: 0DJ08ZZ Inspection of Upper Intestinal Tract, Via Natural or Artificial Opening Endoscopic (ICD-10-PCS; CPT 43235; principal; 2018-06-03 11:30)
DX: K52.9 Noninfective gastroenteritis and colitis, unspecified (principal); K29.50 Unspecified chronic gastritis without bleeding
CPT/HCPCS: 43239; 88305; 88342; J2250; J3010

== ENCOUNTER → 2018-06-28 12:10 | Outpatient (ROUT) | payer OTHER, SELFPAY ==
[2018-07-03 18:09] LABS: Calprotectin, Stool < 15.6 mcg/g
== END ==
PROVIDERS: Visit Provider Internal Medicine Gastroenterology
DX: R10.13 Epigastric pain (principal)
CPT/HCPCS: 83993

== ENCOUNTER 2019-01-05 21:29 | Observation (INO) | payer OTHER, SELFPAY ==
--- NOTE | 2019-01-05 21:33 | DI.US.S_ITS ---
PROCEDURE: US RENAL COMPLETE INDICATIONS: SEVERE RIGHT FLANK PAIN; TECHNIQUE: Real-time scanning was performed of the kidneys and bladder, with image documentation. COMPARISON: None. FINDINGS: Kidneys: Kidneys are normal in size. Right kidney measures 11.8 cm long; left kidney measures 10.4 cm long. Right renal cortical thickness is 2.1 cm; left renal cortical thickness is 1.6 cm. Renal cortical echotexture is normal. Moderate to severe right-sided hydronephrosis noted. No nephrolithiasis. No suspicious solid mass lesions. Bladder: Urinary bladder was nondistended which precluded ultrasound evaluation. Miscellaneous: No free pelvic fluid. Intrauterine gestation noted. heart rate measured at 144 beats per minute. IMPRESSION: Moderate to severe right-sided hydronephrosis. Dictated by: Luli Theodore MD, PhD on 01/06/2019 at 7:50 Approved by: Luli Theodore MD, PhD on 01/06/2019 at 7:51
--- NOTE | 2019-01-05 21:33 | ED.FEMALEGU ---
HPI - Female Genitourinary General Chief complaint: Urogenital-Female Stated complaint: Flank pain,hx kidney stones Time Seen by Provider: 01/05/19 21:32 Source: patient and EMS Mode of arrival: EMS Limitations: no limitations History of Present Illness HPI Narrative: 33-year-old female at 22 weeks with benign OB history presents by EMS for evaluation of nausea, vomiting as well as severe right flank pain. She does have a history of kidney stones and states this feels similar. She was seen by her doctor a few days ago with a chief complaint of dysuria, frequency and urgency and had urine suggesting infection. She was put on Macrobid. She denies any suprapubic tenderness contractions, vaginal bleeding or leakage of fluid. MD Complaint: dysuria and UTI Onset (ago): day(s) Location: suprapubic Female Urogenital Radiation: R Flank Severity: moderate Quality: Aching Duration: constant Exacerbating factors: movement Urinary symptoms: Difficulty Urinating, Dysuria and Flank Pain Patient : Yes Related Data Home Medications Medication Instructions Recorded Confirmed PNV cmb#95-ferrous fumarate-FA 28 - 800 tab PO DAILY 01/06/19 01/06/19 [] Previous Rx's Medication Instructions Recorded esomeprazole magnesium [Nexium] 40 mg PO DAILY #30 cap 04/04/18 Allergies Allergy/AdvReac Type Severity Reaction Status Date / Time Sulfa (Sulfonamide Allergy Severe Anaphylaxis Verified 01/05/19 21:40 Antibiotics) Review of Systems Constitutional Constitutional: Denies chills, Denies fatigue, Denies fever(s), Denies frequent falls, Denies lethargy and Denies weakness Eyes Eyes: Denies change in vision, Denies eye discharge, Denies irritation and Denies loss of vision ENT Ears, Nose, Mouth, and Throat: Denies change in voice, Denies dizziness, Denies neck pain, Denies sore throat and Denies throat swelling Cardiovascular Cardiovascular: Denies chest pain, Denies irregular heart rhythm, Denies lightheadedness, Denies palpitations, Denies dyspnea, Denies dyspnea on exertion and Denies orthopnea Respiratory Respiratory: Denies cough, Denies dyspnea, Denies dyspnea on exertion and Denies wheezing Gastrointestinal Gastrointestinal: Denies abdominal pain, Denies change in bowel habits, Denies diarrhea, Denies nausea and Denies vomiting Genitourinary Genitourinary: Denies hematuria, Reports flank pain, Denies urinary incontinence and Denies urinary urgency Musculoskeletal Musculoskeletal: Denies back pain, Denies muscle weakness, Denies neck pain, Denies numbness and Denies tingling Integumentary/Breasts Skin/Breast: Denies pruritus, Denies erythema, Denies rash and Denies wounds Neurologic Neurologic: Denies behavioral changes, Denies confusion, Denies dizziness, Denies frequent falls, Denies loss of vision, Denies numbness, Denies tingling and Denies weakness Psychiatric Psychiatric: Denies anxiety, Denies behavioral changes, Denies confusion, Denies depression, Denies homicidal ideation and Denies suicidal ideation Endocrine Endocrine: Denies fatigue, Denies flushing and Denies palpitations Hematologic/Lymphatic Hematologic/Lymphatic: Denies easy bruising Allergic/Immunologic Allergic/Immunologic: Denies urticaria, Denies throat swelling and Denies wheezing Patient History alcohol intake frequency: a few times a week Substance Use Type: marijuana Exam Narrative Exam Narrative: GENERAL: [33] year old patient appears stated age. Well-nourished, well-developed patient, in moderate, rocking back and forth on the car and holding an emesis bag, clearly feeling unwell HEAD: Atraumatic. Normocephalic. EYES: Pupils equal round and reactive. Extraocular motions intact. No scleral icterus. No injection or drainage. ENT: Nose without bleeding, purulent drainage. Throat without erythema, tonsillar hypertrophy or exudate. Airway patent. NECK: Trachea midline. Non tender CARDIOVASCULAR: Regular rate and rhythm without murmurs, gallops, or rubs. RESPIRATORY: Clear to auscultation. Breath sounds equal bilaterally. No wheezes, rales, or rhonchi. GASTROINTESTINAL: Abdomen soft, non-tender, nondistended. EXTREMITIES: No edema or joint tenderness. BACK: Right CVA tenderness NEURO: AOx3. SKIN: No rash or erythema of visible areas Initial Vital Signs Initial Vital Signs: Vital Signs Temperature 97.8 F 01/05/19 21:40 Pulse Rate 70 01/05/19 21:40 Respiratory Rate 15 01/05/19 21:40 Blood Pressure 110/33 L 01/05/19 21:40 Pulse Oximetry 100 01/05/19 21:40 Course Orders Ordered: ED Orders 01/05/19 21:33 US renal complete Stat 01/05/19 21:42 Basic Metabolic Panel Stat Complete Blood Count AUTO DIFF Stat Lactate (Lactic Acid) Stat 01/05/19 21:46 Urine Microscopic Stat 01/05/19 21:48 Blood Culture Stat Acetaminophen (Tylenol) 650 mg PO Q6HR PRN PRN Reason: As Needed for Fever/Mild Pain Last Admin: 01/06/19 02:46 Dose: 650 mg Documented by: KGFREDY Hydromorphone HCl (Dilaudid) 0.25 mg IV Q4H PRN PRN Reason: Pain, Severe (7-10) Last Admin: 01/06/19 01:20 Dose: 0.25 mg Documented by: KGALLAG Sodium Chloride (Normal Saline 0.9%) 1,000 mls @ 125 mls/hr IV CONT ESTELLA Ondansetron HCl (Zofran) 4 mg IV Q4HR PRN PRN Reason: Nausea And Vomiting Last Admin: 01/06/19 00:40 Dose: 4 mg Documented by: CARMEN Discontinued Medications Hydromorphone HCl (Dilaudid) 0.25 mg IV NOW ONE Stop: 01/05/19 22:17 Last Admin: 01/05/19 22:26 Dose: 0.25 mg Documented by: TRUDI Hydromorphone HCl (Dilaudid) 0.25 mg IV NOW ONE Stop: 01/06/19 00:12 Last Admin: 01/06/19 00:18 Dose: 0.25 mg Documented by: MMCFARVandana Sodium Chloride (Normal Saline 0.9%) 1,000 mls @ 1,000 mls/hr IV BOLUS ONE Stop: 01/05/19 22:32 Last Infusion: 01/05/19 23:08 Dose: 0 mls/hr Documented by: Admin: 01/05/19 22:00 Dose: 1,000 mls/hr Documented by: MADDY Potassium Chloride 40 meq/ (Sodium Chloride) 520 mls @ 130 mls/hr IV NOW ONE Stop: 01/06/19 02:47 Last Infusion: 01/06/19 00:42 Dose: 130 mls/hr Documented by: ARGELIA Cosigned by: MMCFARL Admin: 01/05/19 23:14 Dose: 130 mls/hr Documented by: ARGELIA Cosigned by: MADDY Metoclopramide HCl (Reglan) 10 mg IV NOW ONE Stop: 01/05/19 22:17 Last Admin: 01/05/19 22:26 Dose: 10 mg Documented by: TRUDI Ondansetron HCl (Zofran) 4 mg IV NOW ONE Stop: 01/05/19 21:49 Last Admin: 01/05/19 22:00 Dose: 4 mg Documented by: MADDY Consultations Consultation #1: Dr. Parker happy to accept this patient on her service Vital Signs Vital signs: Vital Signs - 8 hr 01/05/19 21:40 Temperature 97.8 F Pulse Rate 70 Respiratory Rate 15 Blood Pressure 110/33 L Pulse Oximetry 100 MDM - Female Genitourinary Lab Data Result diagrams: 01/05/19 21:42 01/05/19 21:42 Labs: Lab Results 01/05/19 01/05/19 01/05/19 Range/Units 21:42 21:42 21:42 WBC 9.7 (4.5-11.0) X10^3/uL RBC 3.89 L (4.0-5.2) X10^6/uL Hgb 11.9 L (12.0-16.0) g/dL Hct 34.8 L (36-46) % MCV 89.3 (80-100) fL MCH 30.7 (26-34) PG MCHC 34.3 (30-36) % RDW 12.5 (11.6-14.8) % Plt Count 322 (150-400) X10^3/uL Neut % (Auto) 55.0 (50-75) % Lymph % (Auto) 33.4 (25-40) % [place] % (Auto) 9.5 (3-14) % Eos % (Auto) 1.8 L (2-4) % Baso % (Auto) 0.3 (0-2) % Neut # (Auto) 5300 (1456-9466) /uL Lymph # (Auto) 3200 (0503-7864) /uL [place] # (Auto) 900 (0-900) /uL Eos # (Auto) 200 (0-450) /uL Baso # (Auto) 0 (0-100) /uL Sodium 135 L (137-145) mmol/L Potassium 3.0 L (3.4-5.1) mmol/L Chloride 102 (98-107) mmol/L Carbon Dioxide 26 (22-32) mmol/L BUN 11 (7-17) mg/dL Creatinine 0.50 L (0.52-1.04) mg/dL Estimated GFR > 60.0 (>60) mL/min BUN/Creatinine Ratio 22.0 (6-22) Glucose 98 (70-100) mg/dL Lactate 1.9 (0.7-2.1) mmol/L Calcium 9.0 (8.4-10.2) mg/dL Urine RBC (0-5/HPF) Urine WBC (0-5/HPF) Ur Squamous Epith Cells (0-5/HPF) Urine Bacteria (None) Urine Mucus (Negative) Ur Culture Indicated? 01/05/19 Range/Units 21:46 WBC (4.5-11.0) X10^3/uL RBC (4.0-5.2) X10^6/uL Hgb (12.0-16.0) g/dL Hct (36-46) % MCV (80-100) fL MCH (26-34) PG MCHC (30-36) % RDW (11.6-14.8) % Plt Count (150-400) X10^3/uL Neut % (Auto) (50-75) % Lymph % (Auto) (25-40) % Ellsworth % (Auto) (3-14) % Eos % (Auto) (2-4) % Baso % (Auto) (0-2) % Neut # (Auto) (8217-2742) /uL Lymph # (Auto) (3446-2842) /uL [place] # (Auto) (0-900) /uL Eos # (Auto) (0-450) /uL Baso # (Auto) (0-100) /uL Sodium (137-145) mmol/L Potassium (3.4-5.1) mmol/L Chloride (98-107) mmol/L Carbon Dioxide (22-32) mmol/L BUN (7-17) mg/dL Creatinine (0.52-1.04) mg/dL Estimated GFR (>60) mL/min BUN/Creatinine Ratio (6-22) Glucose (70-100) mg/dL Lactate (0.7-2.1) mmol/L Calcium (8.4-10.2) mg/dL Urine RBC 0-1/hpf (0-5/HPF) Urine WBC 10-30/hpf H (0-5/HPF) Ur Squamous Epith Cells 10-30 /hpf H D (0-5/HPF) Urine Bacteria Many (>30) H (None) Urine Mucus 1+ H (Negative) Ur Culture Indicated? Cult not indicated Urine Dip Bedside Urine Glucose Negative Bedside Urine Bilirubin - Negative Bedside Urine Ketone + 15 Urine Specific [place] 1.015 Bedside Urine Occult Blood +/- Bedside Urine pH 6.0 Bedside Urine Protein - Negative Bedside Urine Urobilinogen - Negative Bedside Urine Nitrite - Negative Bedside Urine Leukocytes + 70 Esterase Imaging Data US - abdomen: Radiologist's impression: Moderate to severe right hydronephrosis MDM Narrative Medical decision making narrative: 33-year-old female, at 8:12 p.m. weeks with pyelonephritis, nausea and persistent pain will require hospitalization for ongoing evaluation and treatment of her underlying illness. Kidney stone, pyelonephritis and hydronephrosis of all considered, kidney stone thought less likely given ultrasound findings Discharge Plan Departure Patient Disposition: Admitted as Observation Clinical Impression: Pyelonephritis, Acute hypokalemia Discharge Date/Time: 01/06/19 00:46 Admit Date/Time: 01/05/19 23:03 Admit Provider: Lucie Parker
[2019-01-05 21:40] VITALS: BP 110/33; PULSE 70; RESP 15; TEMP 36.6; O2SAT 100; BMI 23.5
[2019-01-05 22:00] LABS: RBC Urine 0-1/HPF (0-5/HPF); Squamous Epithelial Cell Urine 10-30 /HPF (0-5/HPF); WBC Urine 10-30/HPF (0-5/HPF)
[2019-01-05] MEDS: ONDANSETRON 4 MG/2 ML INJ IV (22:00)
[2019-01-05] MEDS: SODIUM CHLORIDE 0.9% 1,000 ML 1000 ML IV (22:00)
[2019-01-05 22:01] LABS: Bacteria Urine Many (>30); Culture Indicated Urine Cult Not Indicated; Mucus Urine 1+ (Negative)
[2019-01-05 22:03] LABS: Add Manual Diff / Slide Review NO; Basophils Absolute Auto 0 /uL (0-100); Basophils Percent Auto 0.3 % (0-2); Eosinophils Absolute Auto 200 /uL (0-450); Eosinophils Percent Auto 1.8 % (2-4); Hematocrit 34.8 % (36-46); Hemoglobin 11.9 g/dL (12.0-16.0); Lymphocytes Absolute Auto 3200 /uL (1100-4500); Lymphocytes Percent Auto 33.4 % (25-40); Mean Corpuscular HGB Conc 34.3 % (30-36); Mean Corpuscular Hemoglobin 30.7 PG (26-34); Mean Corpuscular Volume 89.3 fL (80-100); Monocytes Absolute Auto 900 /uL (0-900); Monocytes Percent Auto 9.5 % (3-14); Neutrophils Absolute Auto 5300 /uL (1500-7000); Platelet Count 322 X10^3/uL (150-400); Red Blood Cell Count 3.89 X10^6/uL (4.0-5.2); Red Cell Distribution Width 12.5 % (11.6-14.8); White Blood Cell Count 9.7 X10^3/uL (4.5-11.0)
--- NOTE | 2019-01-05 22:10 | PC.NURSE ---
Pt developed abd cramping. Dr Andrea aware,called L/D to come over to evaluate her for .
[2019-01-05 22:20] LABS: Lactate (Lactic Acid) 1.9 mmol/L (0.7-2.1)
[2019-01-05 22:21] LABS: Blood Urea Nitrogen 11 mg/dL (7-17); Carbon Dioxide 26 mmol/L (22-32); Chloride 102 mmol/L (98-107); Estimated Glomerular Filt Rate > 60.0 mL/min (>60); Glucose 98 mg/dL (70-100); HEMOLYSIS < 15 (0-50); Sodium 135 mmol/L (137-145)
[2019-01-05] MEDS: METOCLOPRAMIDE 10 MG/2 ML INJ IV (22:26)
[2019-01-05] MEDS: HYDROMORPHONE 0.5 MG INJ 0.25 MG IV (22:26)
[2019-01-05] MEDS: POTASSIUM CHLORIDE 40 MEQ in SODIUM CHLORIDE 0.9% 500 ML 130 ML IV (23:14)
[2019-01-05 23:16] VITALS: BMI 23.5
[2019-01-05 23:17] VITALS: BP 104/49; PULSE 84; O2SAT 98
--- NOTE | 2019-01-05 23:31 | PC.NURSE ---
Magi from L/D arrived to evaluate pt. Dr Parker who is admitting pt requesting heart tones
[2019-01-06] VITALS (7 sets, daily range): BP systolic 101–119; BP diastolic 41–71; PULSE 70–87; RESP 16–18; TEMP 36.6–37; O2SAT 97–100
[2019-01-06] MEDS: HYDROMORPHONE 0.5 MG INJ 0.25 MG IV ×3 (00:18→05:28)
[2019-01-06] MEDS: ONDANSETRON 4 MG/2 ML INJ IV ×6 (00:40→21:16)
[2019-01-06] MEDS: ACETAMINOPHEN 325 MG TABLET 650 MG PO ×3 (02:46→17:18)
[2019-01-06] MEDS: OXYCODONE IR 5 MG TABLET PO (03:38)
[2019-01-06] MEDS: SODIUM CHLORIDE 0.9% 1,000 ML 125 ML IV ×3 (03:40→21:18)
--- NOTE | 2019-01-06 06:20 | PC.NURSE ---
Pt admitted to unit as AxOx3, VSS, tolerating room air. Complaints of flank/abdominal pain throughout the night. Rated mostly 9 out of 10, Dilaudid and tylenol given. Dr. Parker notified about patients complaint of feeling increased need to pee; asked about Pyridium but Dr. Parker advised to stay away from it. Oxycodone 5mg ordered. Nauseous throughout shift, zofran given with some relief. Patient is 22 weeks . Some abdominal cramping noted. NS@125mL/hr running as ordered.
--- NOTE | 2019-01-06 08:23 | PM.HP.1 ---
History of Present Illness History of Present Illness Date Patient Seen: 01/06/19 Time Patient Seen: 07:45 Chief complaint: Flank pain,hx kidney stones Narrative: Pt is a 33yo at 21w5d, with no significant medical issues, who presented with severe flank pain. The pt reports that starting 3 days ago she developed a mild pelvic pain. After doing internet research, she thought it was due to a muscle strain. The pain persisted. The pt then developed significant dysuria and urinary frequency. Yesterday she was seen by her SOAKING ROOM OPERATOR, and she was diagnosed with a UTI. She was started on Macrobid empirically. At home yesterday afternoon, she started to have right-sided flank pain. This progressively worsened throughout the day, and by the evening was so severe that she felt she could barely move. She then had her friend bring her to the ER for further evaluation. The pt states that she has been feeling feverish intermittently over this time frame, but did not check her temperature at home. No chills. She continues to have severe dysuria. She denies any blood in her urine, but did notice a small amount of blood on the tissue after urination this morning. She denies any constipation or diarrhea. Starting yesterday afternoon she had significant nausea, and did vomit multiple times as well. She has had little appetite since that time. The pt does have a history of kidney stones in the past. She states this was diagnosed after she passed out on a flight when urinating. She denies having significant pain at that time. The pts thus far has been uncomplicated with normal anatomy scan and labs. [facility] Her is currently deployed. Review of outside records: U/A 01/05/19 - ketones negative, blood negative, nitrite negative, LE negative, WBC 0-3, RBC 0-3, Bacteria rare, Squam 0-3 Urine culture pending, results not yet available Patient History Surgical History (Updated 01/06/19 @ 12:44 by Lucie Parker MD) History of loop electrosurgical excision procedure (LEEP) (Acute) Family & Social History Social History: household members spouse Safety & Behavioral: Feels Safe in Current Yes Environment Been Physically Hurt or No Threatened By a Person Suicidal Ideation Description None Suicide Plan Description No Plan Tobacco & Substance use: Smoking Status Never smoker alcohol intake frequency a few times a week Substance Use Type marijuana Meds Home Medications and Allergies Home Medications Medication Instructions Recorded Confirmed Type esomeprazole magnesium [Nexium] 40 mg PO DAILY #30 cap 04/04/18 01/06/19 Rx PNV cmb#95-ferrous fumarate-FA 28 - 800 tab PO DAILY 01/06/19 01/06/19 History [] Allergies Allergy/AdvReac Type Severity Reaction Status Date / Time Sulfa (Sulfonamide Allergy Severe Anaphylaxis Verified 01/05/19 21:40 Antibiotics) Review of Systems Constitutional Constitutional: Denies chills and Denies fever(s) Cardiovascular Cardiovascular: Denies chest pain, Denies irregular heart rhythm and Denies shortness of breath Respiratory Respiratory: Denies cough and Denies dyspnea Gastrointestinal Gastrointestinal: Reports abdominal pain, Denies melena, Denies constipation, Denies loose stools, Reports nausea and Reports vomiting Genitourinary Genitourinary: Denies hematuria, Reports urinary frequency, Denies urinary incontinence, Denies urinary hesitancy, Reports urinary urgency and Reports flank pain Musculoskeletal Musculoskeletal: Denies back pain and Denies muscle cramps Exam Vital Signs (past 8 hours): - 01/06/19 00:30 01/06/19 05:55 01/06/19 07:30 Temperature 98.1 F 98.6 F 98.2 F Pulse Rate 78 87 70 Respiratory Rate 16 16 16 Blood Pressure 103/41 L 114/53 L 106/58 L Pulse Oximetry 97 97 100 Oxygen Delivery Method Room Air Oxygen Flow Rate 0 Narrative Exam Narrative: GEN - alert, cooperative and no distress, appears very uncomfortable with movement in bed HEENT - normocephalic and atraumatic, sclera white, moist mucus membranes NECK - FROM, no adenopathy HEART - RRR, S1, S2 normal, no S3 or S4, no murmurs LUNGS - symmetric chest rise, no accessory muscles, clear to auscultation bilaterally ABD - flat, gravid with fundus approximately 2cm above umbilicus, nondistended, normal bowel sounds, soft, tender to palpation lower quadrants without rebound/guarding/rigidity, no hepatomegaly, splenomegaly or masses BACK - very significant right-sided CVA tenderness EXT - no cyanosis, clubbing or edema SKIN - no rashes or suspicious lesions NEURO - no gross deficits Objective Labs Result Diagrams: 01/06/19 08:07 01/06/19 08:07 Labs: Laboratory Results - last 24 hr 01/05/19 01/05/19 01/05/19 21:42 21:42 21:42 WBC 9.7 RBC 3.89 L Hgb 11.9 L Hct 34.8 L MCV 89.3 MCH 30.7 MCHC 34.3 RDW 12.5 Plt Count 322 Neut % (Auto) 55.0 Lymph % (Auto) 33.4 [place] % (Auto) 9.5 Eos % (Auto) 1.8 L Baso % (Auto) 0.3 Neut # (Auto) 5300 Lymph # (Auto) 3200 [place] # (Auto) 900 Eos # (Auto) 200 Baso # (Auto) 0 Sodium 135 L Potassium 3.0 L Chloride 102 Carbon Dioxide 26 BUN 11 Creatinine 0.50 L Estimated GFR > 60.0 BUN/Creatinine Ratio 22.0 Glucose 98 Lactate 1.9 Calcium 9.0 Urine RBC Urine WBC Ur Squamous Epith Cells Urine Bacteria Urine Mucus Ur Culture Indicated? 01/05/19 21:46 WBC RBC Hgb Hct MCV MCH MCHC RDW Plt Count Neut % (Auto) Lymph % (Auto) [place] % (Auto) Eos % (Auto) Baso % (Auto) Neut # (Auto) Lymph # (Auto) [place] # (Auto) Eos # (Auto) Baso # (Auto) Sodium Potassium Chloride Carbon Dioxide BUN Creatinine Estimated GFR BUN/Creatinine Ratio Glucose Lactate Calcium Urine RBC 0-1/hpf Urine WBC 10-30/hpf H Ur Squamous Epith Cells 10-30 /hpf H D Urine Bacteria Many (>30) H Urine Mucus 1+ H Ur Culture Indicated? Cult not indicated Assessment & Plan Assessment & Plan narrative: 33yo at 21w5d who presented with severe right flank pain, dysuria, urinary frequency. She was already on treatment for UTI with Macrobid at presentation, started yesterday. Urine culture not yet available. Symptoms most suggestive of kidney stone vs pyelonephritis. No recorded fevers to suggest pyelo, and U/A yesterday not highly suggestive of UTI. However, WBC count is elevated today with left shift. Repeat U/A today does show significant RBCs, more suggestive of kidney stone, however none seen on renal ultrasound. Ultrasound does show moderate to severe hydronephrosis, which after discussion with radiologist could be from , although slightly more than would be anticipated. 1) Right flank pain: Pyelonephritis vs Nephrolithiasis - Discussed with Dr Strickland, Urology - Transvaginal ultrasound to evaluate for distal stone and ureteral jet - Encourage pt to lay on her left side to prevent collapse of ureter - Start Tamsulosin - Repeat urine culture here pending. Will continue to [facility] as well - Continue Ceftriaxone for now - PO narcotics were not effective. Continue IV Morphine with IV Dilaudid for breakthrough pain. Tylenol in additoin. - Zofran PRN for nausea - Continue mIVF 2) 21w5d : FHT 140 today - Continue daily doppler heart tones - vitamin daily FEN: General diet DVT prophylaxis: SCDs Code: Full Dispo: Pending above testing and improvement in pain such that can tolerate fluids and have PO pain control. Anticipate at least 2 midnights.
[2019-01-06] MEDS: HYDROMORPHONE 0.5 MG INJ IV ×2 (08:38→11:50)
[2019-01-06 08:40] LABS: Add Manual Diff / Slide Review NO; Basophils Absolute Auto 0 /uL (0-100); Basophils Percent Auto 0.1 % (0-2); Eosinophils Absolute Auto 0 /uL (0-450); Hematocrit 30.9 % (36-46); Hemoglobin 10.6 g/dL (12.0-16.0); Lymphocytes Absolute Auto 1300 /uL (1100-4500); Lymphocytes Percent Auto 9.5 % (25-40); Mean Corpuscular HGB Conc 34.1 % (30-36); Mean Corpuscular Hemoglobin 30.7 PG (26-34); Mean Corpuscular Volume 89.8 fL (80-100); Monocytes Absolute Auto 500 /uL (0-900); Monocytes Percent Auto 3.8 % (3-14); Neutrophils Absolute Auto 12100 /uL (1500-7000); Neutrophils Percent Auto 86.6 % (50-75); Platelet Count 267 X10^3/uL (150-400); Red Blood Cell Count 3.44 X10^6/uL (4.0-5.2); Red Cell Distribution Width 12.5 % (11.6-14.8)
[2019-01-06 08:47] LABS: Blood Urea Nitrogen 9 mg/dL (7-17); Calcium 7.7 mg/dL (8.4-10.2); Carbon Dioxide 22 mmol/L (22-32); Chloride 106 mmol/L (98-107); Estimated Glomerular Filt Rate > 60.0 mL/min (>60); Glucose 101 mg/dL (70-100); HEMOLYSIS < 15 (0-50); Potassium 3.6 mmol/L (3.4-5.1); Sodium 132 mmol/L (137-145)
[2019-01-06] MEDS: CEFTRIAXONE 1 GM/50 ML FROZ.PIGGY IV (09:24)
[2019-01-06] MEDS: PHENAZOPYRIDINE 100 MG TABLET 200 MG PO (10:46)
--- NOTE | 2019-01-06 11:59 | PC.NURSE ---
spoke with Jacob in lab/micro. Order activated for urine sample from yesterday 01/05 that was sent to be cultured.
[2019-01-06] MEDS: MORPHINE 2 MG/ML INJ 1 MG IV (13:13)
[2019-01-06] MEDS: HYDROCORTISONE 1% OINT 28 GM 1 APPLIC TOP (13:13)
[2019-01-06 13:26] LABS: Appearance Urine UA CLEAR; Bilirubin Urine UA NEGATIVE (NEGATIVE); Color Urine UA YELLOW; Glucose Urine UA NEGATIVE (Negative); Ketones Urine UA 3+ (NEGATIVE); Leukocyte Esterase Urine UA NEGATIVE (NEGATIVE); Nitrite Urine UA NEGATIVE (Negative); Occult Blood Urine UA 3+ (Negative); Protein Urine UA NEGATIVE (Negative); Urobilinogen Urine UA 0.2 E.U./dL (0.2)
[2019-01-06 13:40] LABS: Alanine Aminotransferase 10 IU/L (<35); Albumin 3.2 g/dL (3.5-5.0); Albumin Globulin Ratio 1.2 (1.0-2.8); Alkaline Phosphatase 59 U/L (38-126); Aspartate Aminotransferase 23 IU/L (14-36); Bilirubin Total 0.3 mg/dL (0.2-1.3); Bilirubin Unconjugated 0.2 mg/dL (0.0-1.1); Globulin 2.6 g/dL (1.7-4.1); HEMOLYSIS < 15 (0-50); Total Protein 5.8 g/dL (6.3-8.2)
[2019-01-06 14:02] LABS: Amorphous Sediment Urine 1+; Bacteria Urine Occasional (0-1); RBC Urine 10-30/HPF (0-5/HPF); Squamous Epithelial Cell Urine 0-1 /HPF (0-5/HPF); WBC Urine 0-1/HPF (0-5/HPF)
[2019-01-06 14:03] LABS: Culture Indicated Urine Cult Not Indicated
--- NOTE | 2019-01-06 15:12 | PC.NURSE ---
Patient continues to report severe right flank pain, medicated with dilaudid IV per MD orders with minimal effect. Patient refused oxycodone, and discussed this with MD that it was not helpful and she did not like the way it felt. Patient attempting repositioning to lay on left side, heat pack intermittently. Discussed pain management with Dr. Parker several times, see multiple orders for attempts at pain medication management. Patient instructed to try to lay on her left side per Dr. Parker updates, plan for transvaginal ultrasound tonight. Evening shift RN to continue with plan of care, patient updated, and her dad has now arrived at bedside.
--- NOTE | 2019-01-06 15:12 | DI.US.S_ITS ---
PROCEDURE: US RETRO PERITONEAL LIMITED INDICATIONS: TRANSVAGINAL, EVAL DISTAL URETER STONE, JETS TECHNIQUE: Real-time scanning was performed of the retroperitoneal organs, with image documentation. COMPARISON: [facility], , RENAL COMPLETE, 01/05/2019, 22:21. FINDINGS: Kidneys: Kidneys are normal in size. Right kidney measures 11.6 cm long; left kidney measures 10.5 cm long. Right renal cortical thickness is 1.5 cm; left renal cortical thickness is 1.2 cm. moderate right hydronephrosis. No left hydronephrosis. Right perinephric free fluid 5 mm right ureterovesical calculus. Prevoid bladder volume measures a 10 cc, post void residual measures 24 cc. Intrauterine gestation with a heart rate measuring 157 beats per minute. Both ureteral jets are visualized. IMPRESSION: 5 mm calculus seen at the right ureterovesical junction. Moderate right hydronephrosis. Right perinephric free fluid. Sonographic visualization of both ureteral jets. Post void residual measures 24 cc. Dictated by: Cesario Fung M.D. on 01/06/2019 at 17:43 Approved by: Cesario Fung M.D. on 01/06/2019 at 17:47
--- NOTE | 2019-01-06 15:54 | CM.DANOTE ---
DCP Brief Assessment Note Patient is a 33 year old female who was admitted on 01/05/19 for Flank Pain. Pt has [employer] for insurance and her PCP is on the [facility]. EMR was reviewed. Per MD, pt with hx of kidney stones and currently 22 weeks with acute pylonephritis and on IV-Abx and pain medication with pain management issues. Pt has had regular care with her doctor on the [facility]. Per RN, pt's supportive father bedside and is currently deployed. Pt fairly uncomfortable at this time with ongoing pain management issues. Bedside assessment not completed at this time due to triage needs. Plan: SW to follow closely for pt progress to confirm she will be safe for d/c home when stable and to rule out IV-Abx at d/c. ESAU Pimentel
[2019-01-06] MEDS: TAMSULOSIN 0.4 MG CAPSULE PO (16:02)
[2019-01-06] MEDS: MORPHINE 2 MG/ML INJ IV ×2 (17:19→21:17)
--- NOTE | 2019-01-06 17:28 | PC.NURSE ---
Addendum entered by Rafia Christensen R.N. 01/06/19 20:32: Center RN arrived to assess heart tones. Heart tones 150 BPM. Addendum entered by Rafia Christensen R.N. 01/06/19 19:23: Called Center to assess heart sounds; awaiting arrival of RN. Notified Dr. Soares of results of U/S. No new orders at this time. Requested clarification of order for heart sounds. Dr. Soares states she will consult with Dr. Parker and call back with order if needed. Original Note: Assumed care of pt at 1500. Pt resting in bed during bedside hand-off. Reports pain level 8/10 but declines more medications until MS is available at 1700. Per U/S call when pt has full bladder to complete Trans-Vag U/S. U/S notified at 1630. Arrived shortly after to complete U/S. Pt tolerated U/S well. Urine strained post void; no stones noted in urine. Medicated per mar with zofran 4 mg IV, MS 2 mg IV, and tylenol 650 mg PO for 7/10 R. flank pain. Student nurse participating in care/assessment; all care completed by student nurse has been under the supervision of this expert medical writer.
[2019-01-07 00:45] VITALS: BP 105/52; PULSE 83; RESP 16; TEMP 37.4; O2SAT 98
[2019-01-07] MEDS: MORPHINE 2 MG/ML INJ IV ×3 (01:20→08:43)
[2019-01-07] MEDS: ONDANSETRON 4 MG/2 ML INJ IV ×2 (01:20→05:17)
[2019-01-07] MEDS: ACETAMINOPHEN 325 MG TABLET 650 MG PO ×2 (01:22→21:05)
[2019-01-07 05:48] LABS: Add Manual Diff / Slide Review NO; Basophils Absolute Auto 0 /uL (0-100); Basophils Percent Auto 0.4 % (0-2); Eosinophils Absolute Auto 100 /uL (0-450); Eosinophils Percent Auto 0.7 % (2-4); Hematocrit 27.7 % (36-46); Hemoglobin 9.9 g/dL (12.0-16.0); Lymphocytes Absolute Auto 2100 /uL (1100-4500); Lymphocytes Percent Auto 25.5 % (25-40); Mean Corpuscular HGB Conc 35.6 % (30-36); Mean Corpuscular Hemoglobin 31.9 PG (26-34); Mean Corpuscular Volume 89.6 fL (80-100); Monocytes Absolute Auto 700 /uL (0-900); Neutrophils Absolute Auto 5500 /uL (1500-7000); Neutrophils Percent Auto 65.4 % (50-75); Platelet Count 231 X10^3/uL (150-400); Red Blood Cell Count 3.09 X10^6/uL (4.0-5.2); Red Cell Distribution Width 12.4 % (11.6-14.8); White Blood Cell Count 8.4 X10^3/uL (4.5-11.0)
--- NOTE | 2019-01-07 06:01 | PC.NURSE ---
Pain has been much better controlled tonight than the previous night. Controlled with 2mg IV morphine along with Zofran for some nausea. Mostly flank pain that radiates to abdominal cramping. NS@125mL/hr as ordered. Soft BP but stable. Asymptomatic. Urine strained for possible stones, none found.
[2019-01-07 06:06] LABS: Blood Urea Nitrogen 4 mg/dL (7-17); Carbon Dioxide 22 mmol/L (22-32); Chloride 112 mmol/L (98-107); Estimated Glomerular Filt Rate > 60.0 mL/min (>60); Glucose 87 mg/dL (70-100); HEMOLYSIS < 15 (0-50); Potassium 3.4 mmol/L (3.4-5.1); Sodium 137 mmol/L (137-145)
[2019-01-07 06:11] VITALS: BP 94/48; PULSE 71; RESP 16; TEMP 37; O2SAT 97
[2019-01-07 08:06] VITALS: BP 89/44; PULSE 73; RESP 14; TEMP 36.8; O2SAT 99
--- NOTE | 2019-01-07 08:25 | PC.NURSE ---
Addendum entered by Evie España R.N. 01/07/19 14:50: Pt had shower indep without difficulty. PRn Goldston given with good effect. No stone seen with straining urine. Addendum entered by Evie España R.N. 01/07/19 13:10: Each urine void strained, no stone seen. Pain management plan discussed, PRN Goldston given at 1300 for 5/10 lower pelvic aching, intermittent pinching. IV for BTP. Pt going to have shower. BP to 110/69, asymptomatic, slept during late morning. Addendum entered by Evie España R.N. 01/07/19 10:13: At 0900, called [facility] and made aware of Dr. Parker's new order for Heart tones Qshift- Around 1000, Center RN assessed heart tones, written message left that FHT were 135-141. Addendum entered by Evie España R.N. 01/07/19 08:30: Dr. Parker also aware of BP this AM of 89/44, no new orders. CLINICAL ATHLETIC INSTRUCTOR reported pt as asymptomatic. Original Note: Day Shift- Spoke with Dr. Parker at 0820. Clarify heart tone monitoring. placed order for Qshift heart tone monitor from [facility].
--- NOTE | 2019-01-07 08:29 | PM.PN.1 ---
Subjective Subjective Date Patient Seen: 01/07/19 Time Patient Seen: 08:15 Interval history: The pt reports feeling significantly improved this morning. Her flank pain has nearly resolved, and a majority of her pain is now in her lower abdomen/suprapubic area. She continues to have dysuria. As per nursing last night, no stones were filtered out with her urine. No fevers or chills. Exam Vital Signs (past 8 hours): - 01/07/19 00:45 01/07/19 06:11 Temperature 99.3 F 98.6 F Pulse Rate 83 71 Respiratory Rate 16 16 Blood Pressure 105/52 L 94/48 L Pulse Oximetry 98 97 Oxygen Delivery Method Room Air Oxygen Flow Rate 0 Narrative Exam Narrative: Gen: NAD, sitting comfortably in bed, appears significantly improved from yesterday, eating breakfast CV: RRR, no murmurs Resp: clear to auscultation bilaterally Abd: soft, tender to palpation lower quadrants, most tender suprapubic without rebound/guarding/rigidity, nondistended, gravid Back: minimal right CVA tenderness Ext: no edema Objective Labs Result Diagrams: 01/07/19 05:38 01/07/19 05:38 Labs: Laboratory Results - last 24 hr 01/06/19 01/06/19 01/06/19 08:07 08:07 08:07 WBC 14.0 H RBC 3.44 L Hgb 10.6 L Hct 30.9 L MCV 89.8 MCH 30.7 MCHC 34.1 RDW 12.5 Plt Count 267 Neut % (Auto) 86.6 H D Lymph % (Auto) 9.5 L D [place] % (Auto) 3.8 Eos % (Auto) 0.0 L Baso % (Auto) 0.1 Neut # (Auto) 76176 H Lymph # (Auto) 1300 [place] # (Auto) 500 Eos # (Auto) 0 Baso # (Auto) 0 Sodium 132 L Potassium 3.6 Chloride 106 Carbon Dioxide 22 BUN 9 Creatinine 0.60 Estimated GFR > 60.0 BUN/Creatinine Ratio 15.0 Glucose 101 H Calcium 7.7 L Total Bilirubin 0.3 Conjugated Bilirubin 0.0 Unconjugated Bilirubin 0.2 AST 23 ALT 10 Alkaline Phosphatase 59 Total Protein 5.8 L Albumin 3.2 L Globulin 2.6 Albumin/Globulin Ratio 1.2 Urine Color Urine Appearance Urine pH Ur Specific [place] Urine Protein Urine Glucose (UA) Urine Ketones Urine Occult Blood Urine Nitrate Urine Bilirubin Urine Urobilinogen Ur Leukocyte Esterase Urine RBC Urine WBC Ur Squamous Epith Cells Amorphous Sediment Urine Bacteria Ur Culture Indicated? 01/06/19 01/07/19 01/07/19 13:23 05:38 05:38 WBC 8.4 RBC 3.09 L Hgb 9.9 L Hct 27.7 L MCV 89.6 MCH 31.9 MCHC 35.6 RDW 12.4 Plt Count 231 Neut % (Auto) 65.4 D Lymph % (Auto) 25.5 [place] % (Auto) 8.0 Eos % (Auto) 0.7 L Baso % (Auto) 0.4 Neut # (Auto) 5500 Lymph # (Auto) 2100 [place] # (Auto) 700 Eos # (Auto) 100 Baso # (Auto) 0 Sodium 137 Potassium 3.4 Chloride 112 H Carbon Dioxide 22 BUN 4 L Creatinine 0.50 L Estimated GFR > 60.0 BUN/Creatinine Ratio 8.0 Glucose 87 Calcium 8.0 L Total Bilirubin Conjugated Bilirubin Unconjugated Bilirubin AST ALT Alkaline Phosphatase Total Protein Albumin Globulin Albumin/Globulin Ratio Urine Color Yellow Urine Appearance Clear Urine pH 7.0 Ur Specific [place] 1.010 Urine Protein Negative Urine Glucose (UA) Negative Urine Ketones 3+ H Urine Occult Blood 3+ H Urine Nitrate Negative Urine Bilirubin Negative Urine Urobilinogen 0.2 Ur Leukocyte Esterase Negative Urine RBC 10-30/hpf H D Urine WBC 0-1/hpf D Ur Squamous Epith Cells 0-1 /hpf D Amorphous Sediment 1+ Urine Bacteria Occasional (0-1) D Ur Culture Indicated? Cult not indicated Assessment & Plan Assessment & Plan narrative: 33yo at 21w5d who presented with severe right flank pain, dysuria, urinary frequency. She was already on treatment for UTI with Macrobid at presentation. Urine culture not yet available. Symptoms most suggestive of kidney stone vs pyelonephritis. 5mm stone seen at distal ureter yesterday on transvaginal ultrasound, nonobstructive. Pt with continued good urine output. Does have hydronephrosis on right side, normal creatinine. Will continue to strain urine for stones, and hope for [place] passing. Pt did have elevated WBC count yesterday with left shift. Will continue treatment for possible UTI until culture negative. 1) Nephrolithiasis - Discussed with Dr Kevwitch, Urology yesterday - Encourage pt to lay on her left side to prevent collapse of ureter - Continue Tamsulosin - [facility] - Continue Ceftriaxone for now - Continue IV Morphine, Tylenol. Will start PO hydrocodone-acetaminophen as well to start transition to PO medications in anticipation of d/c. Hopeful stone will pass soon so narcotics no longer necessary. - Zofran PRN for nausea - Continue mIVF, decrease to 75cc/hr as PO intake is up 2) 21w5d : - Continue qshift doppler heart tones - vitamin daily - Docusate PRN for constipation FEN: General diet DVT prophylaxis: SCDs Code: Full Dispo: Pending pain control with PO medications. Possibly later today, although anticipate one additional midnight.
[2019-01-07] MEDS: TAMSULOSIN 0.4 MG CAPSULE PO (08:35)
[2019-01-07] MEDS: CEFTRIAXONE 1 GM/50 ML FROZ.PIGGY IV (08:36)
[2019-01-07] MEDS: DOCUSATE 100 MG CAPSULE PO (13:01)
[2019-01-07] MEDS: HYDROCODONE/ACET 5/325 TABLET 1 TAB PO ×3 (13:02→21:04)
[2019-01-07] MEDS: SODIUM CHLORIDE 0.9% 1,000 ML 75 ML IV ×2 (14:14→19:10)
[2019-01-07 15:48] VITALS: BP 96/57; PULSE 80; RESP 18; TEMP 36.3; O2SAT 100
[2019-01-07 19:27] VITALS: BP 95/56; PULSE 75; RESP 18; TEMP 36.3; O2SAT 100
--- NOTE | 2019-01-07 20:30 | PC.NURSE ---
Addendum entered by Rafia Christensen R.N. 01/07/19 21:15: Center RN assessed FHT at approx 1800: Rate 147-153 BPM Addendum entered by Rafia Christensen R.N. 01/07/19 20:33: Straining all urine no notation of stones thus far this shift. Student nurse participating in care. All care has been under the supervision of this tag writer. Original Note: Assumed care of pt at 1500. Pt resting in bed during bedside hand-off. Ambulating in halls with ROPE COILING MACHINE OPERATOR. Steady on feet; denies dizziness. Fall risk assessment is low fall risk. Pt cleared to be independent in room and halls this shift if she feels steady. Pt aware to call staff if she feels unsteady or dizzy. Taking 1 tab norco q 4 hrs; states pain have moved from flank to lower pelvis.
[2019-01-07 23:00] VITALS: BP 97/54; PULSE 82; RESP 16; TEMP 36.8; O2SAT 97
[2019-01-08] MEDS: HYDROCODONE/ACET 5/325 TABLET 1 TAB PO ×2 (01:05→08:44)
[2019-01-08] MEDS: ACETAMINOPHEN 325 MG TABLET 650 MG PO (05:36)
[2019-01-08 05:43] VITALS: BP 117/61; PULSE 69; RESP 20; TEMP 36.7; O2SAT 99
--- NOTE | 2019-01-08 06:22 | PC.NURSE ---
0520 heart tones assessed by Amanda L&D RN. Heart rate 150, pt. up to the BR. Voided 800 cc of clear yellow urine, strained no kidney stones noted. Pain level 4/10, medicated with 650 mg. of Tylenol, will cont. POc & monitor.
--- NOTE | 2019-01-08 08:16 | PM.DS.1 ---
History of Present Illness History of Present Illness Chief complaint: Flank pain,hx kidney stones Narrative: Pt is a 33yo at 21w5d, with no significant medical issues, who presented with severe flank pain. The pt reports that starting 3 days ago she developed a mild pelvic pain. After doing internet research, she thought it was due to a muscle strain. The pain persisted. The pt then developed significant dysuria and urinary frequency. Yesterday she was seen by her REFERRAL MANAGEMENT LIAISON, and she was diagnosed with a UTI. She was started on Macrobid empirically. At home yesterday afternoon, she started to have right-sided flank pain. This progressively worsened throughout the day, and by the evening was so severe that she felt she could barely move. She then had her friend bring her to the ER for further evaluation. The pt states that she has been feeling feverish intermittently over this time frame, but did not check her temperature at home. No chills. She continues to have severe dysuria. She denies any blood in her urine, but did notice a small amount of blood on the tissue after urination this morning. She denies any constipation or diarrhea. Starting yesterday afternoon she had significant nausea, and did vomit multiple times as well. She has had little appetite since that time. The pt does have a history of kidney stones in the past. She states this was diagnosed after she passed out on a flight when urinating. She denies having significant pain at that time. The pts thus far has been uncomplicated with normal anatomy scan and labs. [facility] Her is currently deployed. Review of outside records: U/A 01/05/19 - ketones negative, blood negative, nitrite negative, LE negative, WBC 0-3, RBC 0-3, Bacteria rare, Squam 0-3 Urine culture pending, results not yet available Discharge Providers Provider Date of admission: 01/05/19 23:03 Discharge Date: 01/08/19 Discharge provider: Lucie Parker MD Summary Hospital Course Discharge Diagnosis: Nephrolithiasis Hospital Course: The patient was admitted due to severe right flank pain thought to be due to pyelonephritis. Renal ultrasound completed in the emergency department did not show any stone. The patient was started on IV ceftriaxone. Her pain was controlled initially with Dilaudid which was then transitioned to IV morphine. Transvaginal ultrasound was then completed that showed a 5 mm distal ureteral stone that was nonobstructive. The patient's pain significantly improved throughout her hospitalization. Her urine was strained, and she did not pass the stone while in the hospital. At the time of discharge, her pain was adequately controlled with p.o. narcotics. She will be discharged home with a limited quantity of these to use until the stone passes. She was also started on Flomax while in the hospital. The patient received 3 days total of IV ceftriaxone. Her urine culture [facility] then returned negative, and antibiotics were discontinued. She will follow up with her OBGYN next week. If the stone has not yet passed, can consider referral to Urology. Her case was discussed with Dr. Strickland while she was in the hospital. Status at Discharge Cognitive/behavioral status at discharge: oriented Functional status at discharge: independent ambulation Overall status at discharge: patient is progressing back to baseline Time Spent with Patient Time spent: Greater than 30 minutes Exam Vital Signs (past 8 hours): - 01/08/19 05:43 Temperature 98.1 F Pulse Rate 69 Respiratory Rate 20 Blood Pressure 117/61 Pulse Oximetry 99 Oxygen Delivery Method Room Air Oxygen Flow Rate 0 Narrative Exam Narrative: General: No acute distress, sitting comfortably in bed, appears well CV: Regular rate and rhythm, no murmurs Respiratory: Clear to auscultation bilaterally Abdomen: Soft, nondistended, gravid, mildly tender in suprapubic region, no rebound/guarding/rigidity Extremities: No edema Objective Labs Result Diagrams: 01/07/19 05:38 01/07/19 05:38 Discharge Plan Discharge Plan Discharge Problem: Pyelonephritis, Acute hypokalemia Patient Disposition: Home Discharge orders & Medications Prescriptions: New hydrocodone-acetaminophen 5-325 mg Tablet 1 tab PO Q4HR PRN (Reason: Pain, Moderate (4-6)) Qty: 20 RF: 0 tamsulosin [Flomax] 0.4 mg Capsule 0.4 mg PO DAILY Qty: 15 RF: 0 docusate sodium [DOK] 100 mg Capsule 100 mg PO BID PRN (Reason: Constipation) Qty: 30 RF: 0 Continued PNV cmb#95-ferrous fumarate-FA [] 28 mg iron- 800 mcg tablet 28 - 800 tab PO DAILY RF: 0 esomeprazole magnesium [Nexium] 40 mg capsule,delayed release(DR/EC) 40 mg PO DAILY Qty: 30 RF: 0 Follow up/Referrals: OB,PHARMACY TECHNICIAN PROGRAM DIRECTOR [Other] (Follow-up next week with your REFERRAL MANAGEMENT LIAISON) Visit Report/Discharge Packet Instructions: DI for Kidney Infection, DI for Kidney Stones, DI for Hypokalemia, Tamsulosin, Hydrocodone Visit Report Forms: Patient Portal/API, Stroke Signs & Symptoms Discharge Data Attending Provider: Lucie Parker Admit Date/Time: 01/05/19 23:03 Discharges patient from system. Discharge Date/Time: 01/08/19 12:52
[2019-01-08] MEDS: DOCUSATE 100 MG CAPSULE PO (08:44)
[2019-01-08] MEDS: TAMSULOSIN 0.4 MG CAPSULE PO (08:44)
[2019-01-08 08:49] VITALS: BP 101/65; PULSE 77; RESP 16; TEMP 36.8; O2SAT 100
--- NOTE | 2019-01-08 08:55 | PC.NURSE ---
Addendum entered by Evie España R.N. 01/08/19 14:45: Pt voided several times, no stone seen, strainer for urine given to pt. Discharge summary packet given to pt, reviewed with no concerns. Discharge information given at 1230. Pt states has all belongings. Pt left unit via wheelchair at 1252 in no distress with [employer] escort. Pt's friend present to drive pt home. Original Note: Day Shift- Pt [id number], reports 5/10 aching, intermittent burning to lower pelvic area to mid and slightly left side. PRN [place] given this AM. Pt's last BM was 01/05, PRN Docusate given, instructed to drink water, will have prescription for home, monitor bowels to prevent constipation, denies feeling of constipation at this time, passing flatus, denies nausea. No stone noted with urine thus far. Instructed pt on straining urine at home and no need to provide stone to Dr's office per Dr. Parker. Pt arranging discharge ride home, no other voiced concerns. Pt requested to have prescriptions sent to [facility] in [place].
[2019-01-08 12:00] VITALS: BP 115/61; PULSE 77; RESP 16; TEMP 36.8; O2SAT 100
== END 2019-01-08 12:52 | disposition home or self-care (01) ==
LOC: ED 22:53 → AC 23:04
PROVIDERS: Admitting Provider Family Medicine; Emergency Provider Emergency Medicine; Visit Provider Family Medicine
DX: N20.2 Calculus of kidney with calculus of ureter (principal); R10.9 Unspecified abdominal pain; R11.2 Nausea with vomiting, unspecified; Z87.442 Personal history of urinary calculi
CPT/HCPCS: 36415; 76770; 76775; 80048; 80076; 81001; 81003; 81015; 83605; 85025; 87040; 87086; 96361; 96365; 96375; 96376; 99223; 99232; 99239; 99283; 99284; G0378; J1170; J2270; J2405; J2765; J3480